=== PATIENT | female | born 1945 | race Caucasian/White ===

== ENCOUNTER 2024-05-17 11:09 | Emergency (ER) | payer OTHER ==
[~2024-05-17] VITALS: Ht 162.6 cm; Wt 104.3 kg
[~2024-05-17 11:09] MED LIST: AMLODIPINE BES2.5 MG PO; ATOR10 PO; HYDCHL25 PO; IRBESARTAN300 M3 PO; MECL25 PO; OTC COLD MEDS; VALA500 PO
[2024-05-17 11:17] VITALS: BP 166/77
[2024-05-17] MEDS ORDERED: NAPROXEN250 M1 PO (15:15)
[2024-05-17] MEDS ORDERED: Naproxen 250 MG TAB PO ONE (15:15)
[2024-05-17] MEDS ORDERED: Neurontin 300300 MG PO (15:15)
[2024-05-17] MEDS ORDERED: Gabapentin 300 MG Cap PO ONE (15:20)
== END 2024-05-17 15:38 | disposition home or self-care (01) ==
LOC: ER 11:09
DX: M54.16 Radiculopathy, lumbar region (principal)
CPT/HCPCS: 72100; 99283-25; A9270